=== PATIENT | male | born 1955 | race Caucasian/White ===

== ENCOUNTER → 2019-10-07 12:03 | Outpatient (CLI) | payer BC, SELFPAY ==
[2019-10-10 15:04] LABS: H. pylori Stool Ag, EIA Negative (Negative)
== END ==
PROVIDERS: Visit Provider Nurse Practitioner
DX: R76.0 Raised antibody titer (principal)
CPT/HCPCS: 87338

== ENCOUNTER → 2021-05-11 08:45 | Outpatient (CLI) | payer BC, SELFPAY ==
[2021-05-11 08:48] LABS: Adenovirus F 40/41, stool Not Detected (NotDetected); Campylobacter Not Detected (NotDetected); Clostridium Difficile A/B, PCR Not Detected (NotDetected); Cryptosporidium Not Detected (NotDetected); Cyclospora Cayetanesis Not Detected (NotDetected); Entamoeba histolytica Not Detected (NotDetected); Enteroaggregative E coli Not Detected (NotDetected); Enteropathogenic E coli Not Detected (NotDetected); Enterotoxigenic E coli Not Detected (NotDetected); Giardia lamblia Not Detected (NotDetected); Norovirus Not Detected (NotDetected); Plesimonas Shigalloides, PCR Not Detected (NotDetected); Rotavirus A Not Detected (NotDetected); Salmonella, PCR Not Detected (NotDetected); Sapovirus Not Detected (NotDetected); Shiga-like toxin E coli Not Detected (NotDetected); Shigella Enterovasive E coli Not Detected (NotDetected); Vibrio Cholerae Not Detected (NotDetected); Vibrio, PCR Not Detected (NotDetected); Yersinia Entercolitica, PCR Not Detected (NotDetected)
[2021-05-11 16:02] LABS: Astrovirus Detected (NotDetected)
== END ==
PROVIDERS: Visit Provider Nurse Practitioner
DX: R19.7 Diarrhea, unspecified (principal); A08.32 Astrovirus enteritis
CPT/HCPCS: 87507

== ENCOUNTER 2022-11-27 10:08 | Emergency (ER) | payer MEDICARE, SELFPAY ==
[2022-11-27 10:09] VITALS: BP 133/83; PULSE 67; RESP 18; TEMP 36.7; O2SAT 97; BMI 23.4
--- NOTE | 2022-11-27 10:30 | EXP.UTC ---
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 He has a laceration on the lateral aspect of his left 5th finger. His tetanus immunization is not up to date. Related Data Allergies Allergy/AdvReac Type Severity Reaction Status Date / Time Sulfa (Sulfonamide Allergy Verified 11/27/22 10:37 Antibiotics) Silver Sulfadiazine Allergy Unknown Uncoded 05/30/17 14:29 [facility] Disclaimer: The information contained in this section may have been updated after the patient was seen, as this information can be updated by other users. Social History Smoking Status: Former smoker alcohol intake: former current occupational status: retired Travel in the last 8 weeks: None ROS Obtained: Yes All systems reviewed & no additional complaints except as documented Constitutional Constitutional: Denies chills and Denies fever(s) Eyes Eyes: Denies eye discharge ENT Ears, Nose, Mouth, and Throat: Denies dizziness, Denies otalgia and Denies sore throat Cardiovascular Cardiovascular: Denies chest pain Respiratory Respiratory: Denies shortness of breath, Denies chest congestion, Denies cough, Denies stridor and Denies wheezing Gastrointestinal Gastrointestingal: Denies nausea or vomiting Musculoskeletal Musculoskeletal: Reports system reviewed and no additional complaints, except as documented and Denies arthralgias Integumentary/Breasts Skin/Breast: Reports as per HPI Neurologic Neurologic: Reports as per HPI, Denies dizziness and Denies paresthesias Allergic/Immunologic Allergic/Immunologic: Denies wheezing Physical Exam General General appearance: alert and in no apparent distress Head Head exam: atraumatic, normocephalic and normal inspection Eye Eye exam: Present normal appearance, PERRL and EOMI ENT ENT exam: Present normal exam, normal oropharynx, mucous membranes moist, TM's normal bilaterally and normal external ear exam Neck Neck exam: Present normal inspection, full ROM and trachea midline; Absent meningismus or lymphadenopathy Chest Chest inspection: Present normal inspection and symmetric chest wall rise; Absent tenderness Respiratory Respiratory exam: Present normal lung sounds bilaterally; Absent respiratory distress Cardiovascular Cardiovascular exam: Present regular rate and normal rhythm; Absent JVD Abdominal Exam Abdominal exam: Present soft and normal bowel sounds; Absent distention, tenderness or guarding Extremities Exam Extremities exam: Present normal inspection, full ROM and normal capillary refill; Absent calf tenderness Back Exam Back exam: Present normal inspection; Absent tenderness Neurological Exam Neurological exam: Present alert and oriented X3 Psychiatric Psychiatric exam: Present normal affect and normal mood Skin Skin exam: Present other (on the 5th finger of his left hand there is flap type laceration that measures 2 cm length. no foreign body noted in the wound. He has good 2 point touch discrimination distal to the wound. ) Lymphatic Lymphatic Findings: no adenopathy Medical Decision Making Miguel Inquiry Pt receiving controlled substance: No Procedures Risk/Benefits of Procedure(s) Were Explained: Yes Laceration Laceration 1: Site: finger (5th) Side (If applicable): left Size (cm): 2 Description: flap Depth: simple, single layer Local Anesthetic: lidocaine 1% Amount of anesthesia used (mL): 1 Pre-repair: wound explored, irrigated extensively and deep structures intact Skin layer closed with: nylon Size (cm): 5-0
[2022-11-27 12:32] VITALS: BP 133/83; PULSE 67; RESP 18; TEMP 36.7; O2SAT 97
== END 2022-11-27 12:33 | disposition home health service (06) ==
PROVIDERS: Emergency Provider Nurse Practitioner Family; PCP Family Medicine
DX: S61.217A Laceration without foreign body of left little finger without damage to nail, initial encounter (principal); W23.0XXA Caught, crushed, jammed, or pinched between moving objects, initial encounter; Z87.891 Personal history of nicotine dependence; Z23 Encounter for immunization
CPT/HCPCS: 12001; 90715; 96372; 99204; 99213; G0463